=== PATIENT | female | born 1965 | race Caucasian/White ===

== ENCOUNTER 2018-02-26 12:06 | Day surgery (SDC) | END 2018-02-26 18:43 | disposition home or self-care (01) ==

== ENCOUNTER 2018-03-05 11:53 | Day surgery (SDC) | END 2018-03-05 15:10 | disposition home or self-care (01) ==

== ENCOUNTER 2018-06-23 15:12 | Emergency (ER) | END 2018-06-23 21:22 | disposition home or self-care (01) ==